=== PATIENT | male | born 1990 | race African-American/Black ===

== ENCOUNTER 2022-05-29 19:59 | Emergency (ER) | payer SELFPAY ==
--- NOTE | ~2022-05-29 | XR_ITS ---
EXAMINATION: XR FOREARM, LEFT CLINICAL INFORMATION: Lung trauma/fall COMPARISON: None TECHNIQUE: AP and lateral views of the left forearm were obtained. FINDINGS: There is a transverse fracture through the mid to distal left ulnar diaphysis. There is mild medial angulation of the distal fracture fragment with no significant dorsal or ventral angulation. No other fractures are seen. XR/XR forearm LT 2V IMPRESSION: Mid to distal left ulnar diaphyseal fracture.
[2022-05-29 20:48] VITALS: BP 125/76; PULSE 93; RESP 18; TEMP 36.6; O2SAT 97; BMI 36.0
--- NOTE | 2022-05-29 20:48 | ED.GENADULT ---
HPI - General Adult General Chief complaint: Extremity Injury, Upper Stated complaint: broke arm Time Seen by Provider: 05/29/22 21:37 Related Data Previous Rx's Medication Instructions Recorded oxycodone 5 mg tablet 5 mg PO Q8H PRN pain #10 tabs 05/29/22 Allergies Allergy/AdvReac Type Severity Reaction Status Date / Time No Known Allergies Allergy Verified 05/29/22 20:51 PMFSH Social History Social History Advance Directives: No Physical Exam ED Vital Signs: BMI result Body Mass Index 36.0 Course Course Course Narrative: triage note NORBERTO: -Pt c/o left arm pain, fell in metal pipe around 6pm, fell on side, states forearm hurts the most able to move fingers -has not taken any meds for pain -given motrin in triage 600mg, xray forearm pending PE: seems in pain, swelling and deformity on left forearm, pain to palpation on L forerarm, no pain on wrist, elbow or shoulder Medications Administered Discontinued Medications Generic Name Dose Route Start Last Admin Trade Name Freq PRN Reason Stop Dose Admin Ibuprofen 600 mg 05/29/22 20:51 05/29/22 20:56 Ibuprofen 600 Mg Tablet PO 05/29/22 20:52 600 mg ONCE ONE Administration Oxycodone HCl 10 mg 05/29/22 21:49 05/29/22 21:54 Oxycodone Hcl Immed Release 5 Mg Tablet PO 05/29/22 21:50 10 mg ONCE ONE Administration Discharge Plan Discharge Clinical Impression: Left ulnar fracture Patient Disposition: Home, Self-Care Instructions: Arm Fracture in Adults (ED), Splint Care (ED) Additional Instructions: Follow-up with orthopedic Elevate the arm Do not get the splint wet Use a sling for comfort Prescriptions: New oxycodone 5 mg tablet 5 mg PO Q8H PRN (Reason: pain) Qty: 10 0RF Rx Instructions: Partial Fill upon patient request. Referrals: [facility] [place] [facility] [Provider Group] - 5 days Interventions: ED Discharge Assessment Last Done: 05/29/22 22:24 Discharge Date/Time: 05/29/22 22:25
[2022-05-29] MEDS: Ibuprofen 600 MG TABLET PO (20:56)
[2022-05-29] MEDS: oxyCODONE HCl Immed Release 5 MG TABLET 10 MG PO (21:54)
--- OUTSIDE RECORDS SUMMARY | 2022-05-29 21:54 | XMS_ITS | Continuity of Care Document ---
:1990 Author Organization [facility] Address [address] [place] [address]- Care Team Providers Name Role Phone Not on Staff, PCP Primary Care Physician Unavailable [place] [facility] [place](s[place] 11/06/20 - 11/06/[address] [address]- Discharge Disposition: A-D/C Walkout Attending Physician: Not on Staff, Attending MD Admitting Physician: Not on Staff, Admitting MD Referring Physician: Not on Staff, Referring MD Allergies, Adverse Reactions, Alerts Substance Reaction Severity Status NKA Active Immunizations Given and Recorded Vaccine Date Status Refusal Reason tetanus/diphtheria/pertussis, acel(Tdap) 01/12/19 Given Not Given Vaccine Date Status Refusal Reason pneumococcal 23-valent vaccine1 08/11/13 Not Given Patient Refuses 1Result Note: already got this season Medications Keflex monohydrate 500 mg oral capsule 1 capsule = 500 mg, By Mouth, 4 times a day, for 5 days, # 20 capsule, 0 Refills, Acute 11/10/20 12:18:00 EDT, 11/05/20 12:18:00 EDT, Capsule, [id number], Partial fill upon patient request if the prescription is for a schedule II opioid drug.,... Start Date: 11/05/20 Stop Date: 11/10/20 Status: OrderedpredniSONE 20 mg oral tablet 2 tablet = 40 mg, By Mouth, Daily, for 5 days, # 10 tablet, 0 Refills, Acute 11/11/20 22:02:00 EDT, 11/06/20 22:02:00 EDT, Tablet, [id number], Partial fill upon patient request if the prescription is for a schedule II opioid drug., 170, cm, 04... Start Date: 11/06/20 Stop Date: 11/11/20 Status: OrderedValtrex 1 gm oral tablet 1 tablet = 1 Gm, By Mouth, 3 times a day, for 7 days, # 21 tablet, 0 Refills, Acute 11/13/20 22:02:00 EDT, 11/06/20 22:02:00 EDT, Tablet, [facility]/pharmacy #[id number], Partial fill upon patient request if the prescription is for a schedule II opioid drug., 170,... Start Date: 11/06/20 Stop Date: 11/13/20 Status: Ordered Vital Signs Most recent to oldest [Reference Range]: 1 Oxygen Saturation [94-100 %] 99 % (11/06/20 6:57 PM) Pulse Rate [55-90 bpm] 122 bpm *H* (11/06/20 6:57 PM) Mode of Delivery (Oxygen) Room air (11/06/20 6:57 PM) Social History Social History Type Response Smoking Status 10 or more cigarettes (1/2 p ack or more)/day in last 30 days entered on: 01/12/19 Sex
--- OUTSIDE RECORDS SUMMARY | 2022-05-29 21:54 | XMS_ITS | Continuity of Care Document ---
:1990 Author Organization [facility] Address [address] [place] [address]- Care Team Providers Name Role Phone Not on Staff, PCP Primary Care Physician Unavailable [id number] Date(s): 11/06/20 - 11/06/[address] [address]- Discharge Disposition: A-D/C Home Attending Physician: Sam Diaz MD Admitting Physician: Sam Diaz MD Referring Physician: Not on Staff, Referring MD Allergies, Adverse Reactions, Alerts Substance Reaction Severity Status NKA Active Immunizations Given and Recorded Vaccine Date Status Refusal Reason tetanus/diphtheria/pertussis, acel(Tdap) 01/12/19 Given Not Given Vaccine Date Status Refusal Reason pneumococcal 23-valent vaccine1 08/11/13 Not Given Patient Refuses 1Result Note: already got this season Medications acetaminophen-HYDROcodone 325 mg-5 mg oral tablet 2 tablet, Tablet, By Mouth, Once, Routine, 11/06/20 23:00:00 EDT, Stop date 11/06/20 23:00:00 EDT Start Date: 11/06/20 Stop Date: 11/06/20 Status: CompletedKeflex monohydrate 500 mg oral capsule 1 capsule [...] 11/11/20 22:02:00 EDT, 11/06/20 22:02:00 EDT, Tablet, [facility]/pharmacy #[id number], Partial fill upon patient request if the prescription is for a schedule II opioid drug., 170, cm, 04... Start Date: 11/06/20 Stop Date: 11/11/20 Status: OrderedValtrex 1 gm oral tablet 1 tablet = 1 Gm, By Mouth, 3 times a day, for 7 days, # 21 tablet, 0 Refills, Acute 11/13/20 22:02:00 EDT, 11/06/20 22:02:00 EDT, Tablet, [facility]/pharmacy #[id number], Partial fill upon patient request if the prescription is for a schedule II opioid drug., 170,... Start Date: 11/06/20 Stop Date: 11/13/20 Status: Ordered Vital Signs Most recent to oldest 1 2 3 [Reference Range]: Height 170 cm 170 cm (11/06/20 10:20 PM) (11/06/20 8:29 PM) Weight 104.8 kg 104.8 kg (11/06/20 10:20 PM) (11/06/20 8:29 PM) Oxygen Saturation [94-100 %] 100 % 97 % (11/06/20 10:20 PM) (11/06/20 8:29 PM) Pulse Rate [55-90 bpm] 78 bpm 91 bpm (11/06/20 10:20 PM) *H* (11/06/20 8:29 PM) Body Mass Index [18.5-24.99] 36.26 *>HHI* (11/06/20 10:20 PM) Blood Pressure [90-138/55-84 160/96 mm Hg 142/85 mm Hg mm Hg] *H* *H* (11/06/20 10:20 PM) (11/06/20 8:29 PM) Respiratory Rate [16-30 18 br/min 18 br/min 20 br/mi n br/min] (11/06/20 10:20 PM) (11/06/20 10:20 PM) (11/06/20 8 :29 PM) Temperature [96.8-100.4 DegF] 98.8 DegF (11/06/20 8:29 PM) Mode of Delivery (Oxygen) Room air Room air (11/06/20 10:20 PM) (11/06/20 8:29 PM) Blood pressure sites Arm, left Arm, left (11/06/20 10:20 PM) (11/06/20 8:29 PM) Temperature Route Oral (11/06/20 8:29 PM) Dry Weight 104.8 kg 104.8 kg (11/06/20 10:20 PM) (11/06/20 8:29 PM) Weight Obtained Via Standing scale (11/06/20 8:29 PM) Dry Weight Obtained Via Standing scale (11/06/20 8:29 PM) Social History Social History Type Response Smoking Status 10 or more cigarettes (1/2 p ack or more)/day in last 30 days entered on: 01/12/19 Sex
--- OUTSIDE RECORDS SUMMARY | 2022-05-29 21:54 | XMS_ITS | Continuity of Care Document ---
:1990 Author Organization [facility] Address [address] [place] [address]- Care Team Providers Name Role Phone Not on Staff, PCP Primary Care Physician Unavailable Encounter [facility] Date(s): 09/13/19 - 09/14/[address] [address]- [facility] Discharge Disposition: A-D/C Home Attending Physician: Allison Rosales MD Admitting Physician: Allison Rosales MD Referring Physician: Not on Staff, Referring MD Allergies, Adverse Reactions, Alerts Substance Reaction Severity Status NKA Active Immunizations Given and Recorded Vaccine Date Status Refusal Reason tetanus/diphtheria/pertussis, acel(Tdap) 01/12/19 Given Not Given Vaccine Date Status Refusal Reason pneumococcal 23-valent vaccine1 08/11/13 Not Given Patient Refuses 1Result Note: already got this season Medications doxycycline monohydrate 100 mg oral capsule 1 capsule = 100 mg, By Mouth, Every 12 hours, for 10 days, # 20 capsule, 0 Refills, Acute 09/24/19 4:33:00 EST, 09/14/19 4:33:00 EST, Capsule Start Date: 09/14/19 Stop Date: 09/24/19 Status: Orderedibuprofen 600 mg oral tablet 1 tablet = 600 mg, By Mouth, Every 8 hours, # 90 tablet, 0 Refills, Maintenance, 08/24/13 10:26:52, Tablet, 1 tablet By Mouth Every 8 hours Start Date: 08/24/13 Status: OrderedOxycodone 5mg/Acetaminophen 325mg Tablet 1, tablet, By Mouth, Every 6 hours, Refills 0, Tot. Refills 0, Maintenance, 08/24/13 10:05:19 Start Date: 08/24/13 Status: OrderedSenna By Mouth, 0 Refills, Maintenance, 08/24/13 10:04:31 Start Date: 08/24/13 Status: OrderedZofran 4 mg oral tablet 1 tablet = 4 mg, By Mouth, Every 8 hours, 0 Refills, Maintenance, 08/24/13 10:05:06 Start Date: 08/24/13 Status: Ordered Vital Signs Most recent to oldest [Reference Range]: 1 Height 170 cm (09/13/19 10:48 PM) Weight 93.5 kg (09/13/19 10:48 PM) Oxygen Saturation [94-100 %] 97 % (09/13/19 10:48 PM) Pulse Rate [55-90 bpm] 71 bpm (09/13/19 10:48 PM) Blood Pressure [90-138/55-84 mm Hg] 130/78 mm Hg (09/13/19 10:48 PM) Respiratory Rate [16-30 br/min] 18 br/min (09/13/19 10:48 PM) Temperature [96.8-100.4 DegF] 98.6 DegF (09/13/19 10:48 PM) Mode of Delivery (Oxygen) Room air (09/13/19 10:48 PM) Blood pressure sites Arm, left (09/13/19 10:48 PM) Temperature Route Oral (09/13/19 10:48 PM) Dry Weight 93.5 kg (09/13/19 10:48 PM) Weight Obtained Via Standing scale (09/13/19 10:48 PM) Dry Weight Obtained Via Standing scale (09/13/19 10:48 PM) Social History Social History Type Response Smoking Status 10 or more cigarettes (1/2 p ack or more)/day in last 30 days entered on: 01/12/19 Sex
--- OUTSIDE RECORDS SUMMARY | 2022-05-29 21:54 | XMS_ITS | Continuity of Care Document ---
:1990 Author Organization [facility] Address [address] [place] [address]- Care Team Providers Name Role Phone Not on Staff, PCP Primary Care Physician Unavailable [place] [facility] [place]/14/[address] [address]- [facility] Encounter Diagnosis Epididymitis (Final) - 09/14/19 Discharge Disposition: A-D/C Home Attending Physician: Florida Langston MD Admitting Physician: Florida Langston MD Referring Physician: Not on Staff, Referring [...] to oldest 1 2 3 [Reference Range]: Weight 94.1 kg 94.1 kg 94.1 kg (09/14/19 4:39 AM) (09/14/19 3:49 AM) (09/14/19 1:3 2 AM) Oxygen Saturation [94-100 %] 100 % 99 % 100 % (09/14/19 4:39 AM) (09/14/19 3:49 AM) (09/14/19 1:3 2 AM) Pulse Rate [55-90 bpm] 60 bpm 54 bpm 71 bpm (09/14/19 4:39 AM) *L* (09/14/19 1:32 AM) (09/14/19 3:49 AM) Blood Pressure [90-138/55-84 mm 139/89 mm Hg 127/67 mm Hg 144/69 mm Hg Hg] *H* (09/14/19 3:49 AM) *H* (09/14/19 4:39 AM) (09/14/19 1:32 AM) Respiratory Rate [16-30 br/min] 20 br/min 20 br/min 16 br/min (09/14/19 4:39 AM) (09/14/19 3:49 AM) (09/14/19 1:3 2 AM) Temperature [96.8-100.4 DegF] 98.7 DegF 97.9 DegF 98 .1 DegF (09/14/19 4:39 AM) (09/14/19 3:49 AM) (09/14/19 1:3 2 AM) Mode of Delivery (Oxygen) Room air Room air Room a ir (09/14/19 4:39 AM) (09/14/19 3:49 AM) (09/14/19 1:3 2 AM) Blood pressure sites Arm, right Arm, right Arm, right (09/14/19 4:39 AM) (09/14/19 3:49 AM) (09/14/19 1:3 2 AM) Temperature Route Oral Oral Oral (09/14/19 4:39 AM) (09/14/19 3:49 AM) (09/14/19 1:3 2 AM) Dry Weight 94.1 kg 94.1 kg 94.1 kg (09/14/19 4:39 AM) (09/14/19 3:49 AM) (09/14/19 1:3 2 AM) Social History Social History Type Response Smoking Status 10 or more cigarettes (1/2 p ack or more)/day in last 30 days entered on: 01/12/19 Sex
--- OUTSIDE RECORDS SUMMARY | 2022-05-29 21:54 | XMS_ITS | Continuity of Care Document ---
:1990 Author Organization [facility] Address [address] [place] [address]- Care Team Providers Name Role Phone Not on Staff, PCP Primary Care Physician Unavailable [id number] Date(s): 03/13/22 - 03/13/[address] [address]- Discharge Disposition: A-D/C Home Attending Physician: Saul Jimenze MD Admitting Physician: Saul Jimenez MD Referring Physician: Not on Staff, Referring MD Allergies, Adverse Reactions, Alerts No Known Allergies Immunizations Given and Recorded Vaccine Date Status Refusal Reason tetanus/diphtheria/pertussis, acel(Tdap) 01/12/19 Given Not Given Vaccine Date Status Refusal Reason pneumococcal 23-valent vaccine1 08/11/13 Not Given Patient Refuses 1Result Note: already got this season Medications amoxicillin 500 mg oral capsule 1 capsule = 500 mg, By Mouth, 3 times a day, for 7 days, # 21 capsule, 0 Refills, Acute 03/20/22 8:37:00 EDT, 03/13/22 8:37:00 EDT, Capsule, [id number], Partial fill upon patient request if theprescription is for a schedule II opioid drug., 1... Start Date: 03/13/22 Stop Date: 03/20/22 Status: OrderedHYDROcodone 5 mg/Acetaminophen 325 mg Tablet 1 tablet, Tablet, By Mouth, Once, STAT, 03/13/22 8:32:00 EDT, Stop date 03/13/22 8:32:00 EDT Start Date: 03/13/22 Stop Date: 03/13/22 Status: Completedibuprofen 600 mg oral tablet 600 mg, 1, tablet, By Mouth, Every 6 hours, # 40 tablet, Refills 0, Tot. Refills 0, Acute 03/14/22 8:40:00 EDT, 03/13/22 8:40:00 EDT, Route to Pharmacy Electronically, [facility]/pharmacy #[id number], Partial fill upon patient request if the prescription is for a... Start Date: 03/13/22 Stop Date: 03/14/22 Status: OrderedoxyCODONE 5 mg oral capsule 1 capsule = 5 mg, By Mouth, Every 6 hours, PRN as needed for pain, # 10 capsule, 0 Refills, Acute 03/14/22 8:40:00 EDT, 03/13/22 8:40:00 EDT, Capsule, [facility]/pharmacy #[id number], Partial fill upon patient request if the prescription is for a schedule II opioi... Start Date: 03/13/22 Stop Date: 03/14/22 Status: Ordered Problem List Condition Effective Dates Status Health Status Informant Obese class II(Confirmed) Active Vital Signs Most recent to oldest [Reference Range]: 1 2 Height 170 cm 170 cm (03/13/22 7:29 AM) (03/13/22 7:25 AM) Weight 103.6 kg 103.6 kg (03/13/22 7:29 AM) (03/13/22 7:25 AM) Oxygen Saturation [94-100 %] 98 % 98 % (03/13/22 8:00 AM) (03/13/22 7:25 AM) Pulse Rate [55-90 bpm] 78 bpm 80 bpm (03/13/22 8:00 AM) (03/13/22 7:25 AM) Body Mass Index [18.5-24.99] 35.85 *>HHI* (03/13/22 7:25 AM) Blood Pressure [90-138/55-84 mm Hg] 128/64 mm Hg 136/ 84 mm Hg (03/13/22 8:00 AM) (03/13/22 7:25 AM) Respiratory Rate [16-30 br/min] 16 br/min 16 br/mi n (03/13/22 8:45 AM) (03/13/22 7:25 AM) Temperature [96.8-100.4 DegF] 97.9 DegF (03/13/22 7:25 AM) Mode of Delivery (Oxygen) Room air Room air (03/13/22 8:00 AM) (03/13/22 7:25 AM) Blood pressure sites Arm, left (03/13/22 7:25 AM) Temperature Route Oral (03/13/22 7:25 AM) Dry Weight 103.6 kg 103.6 kg (03/13/22 7:29 AM) (03/13/22 7:25 AM) Weight Obtained Via Standing scale (03/13/22 7:25 AM) Dry Weight Obtained Via Standing scale (03/13/22 7:25 AM) Social History Social History Type Response Smoking Status 10 or more cigarettes (1/2 p ack or more)/day in last 30 days entered on: 01/12/19 Sex
--- OUTSIDE RECORDS SUMMARY | 2022-05-29 21:54 | XMS_ITS | Continuity of Care Document ---
:1990 Author Organization [facility] Address [address] [place] [address]- Care Team Providers Name Role Phone Not on Staff, PCP Primary Care Physician Unavailable [id number] Date(s): 11/05/20 - 11/05/[address] [address]- Discharge Disposition: A-D/C Home Attending Physician: Eddie DICKENS, Olya Trotter Admitting Physician: Olya Morgan MD Referring Physician: Not on Staff, Referring [...] Start Date: 11/05/20 Stop Date: 11/10/20 Status: Ordered Results Orders for Microbiology Reports Name Date Group A Strep Screen and Culture 11/05/20 Microbiology Reports TEST:Group A Strep Screen and Culture STATUS:Unauthenticated BODY SITE: SOURCE:THROAT COLLECTED DATE/TIME:11/05/20 10:30 AMGroup A Strep Screen and Culture SPECIMEN DESCRIPTION : THROAT SWAB SPECIAL REQUESTS : NONE DIRECT EXAM : RAPID GROUP A RESULT IS NEGATIVE, REFER TO CULTURE RESULT. REPORT STATUS : PRELIMINARY REPORT Radiology Reports Exam Date Time Procedure Performing Provider Status 11/05/20 10:08 AM Chest Single Frontal View Ifrah Saldivar; Auth (Verified) Notes:(Chest Single Frontal View) Reason For Exam: Shortness of BreathRESULT: Chest Single Frontal View Chest Single Frontal View INDICATION/CLINICAL QUESTION: Pain with swallowing. Air pain. TECHNIQUE: AP chest 0856 hours 11/05/2020. COMPARISON: 06/19/2019. FINDINGS: LINES AND TUBES: Absent. LUNGS AND PLEURA: RIGHT CHEST: Lung is clear and there is no effusion. LEFT CHEST: The lung is clear and there is no effusion. HEART AND MEDIASTINAL CONTOURS: Normal. BONES AND SOFT TISSUES: No acute abnormality.. IMPRESSION: 1. No active disease in chest. WSN: [id number] Ordering Physician: Olya Morgan Dictated By: Cristiano Wade MD Dictated Date/Time: 11/05/20 11:33 a Reviewed By: Cristiano Wade MD Signed By: Cristiano Wade MD Signed Date/Time: 11/05/20 11:33 am Transcribed By: PALMER Transcribed Date/Time: 11/05/20 11:32 am Vital Signs Most recent to oldest 1 2 3 [Reference Range]: Height 170 cm 170 cm (11/05/20 12:45 PM) (11/05/20 9:16 AM) Weight 106.3 kg 106.3 kg (11/05/20 12:45 PM) (11/05/20 9:16 AM) Oxygen Saturation [94-100 %] 100 % 100 % 100 % (11/05/20 12:45 PM) (11/05/20 11:31 AM) (11/05/20 9 :16 AM) Pulse Rate [55-90 bpm] 72 bpm 57 bpm 82 bpm (11/05/20 12:45 PM) (11/05/20 11:31 AM) (11/05/20 9 :16 AM) Body Mass Index [18.5-24.99] 36.78 *>HHI* (11/05/20 12:45 PM) Blood Pressure [90-138/55-84 131/91 mm Hg 141/97 mm Hg 129 /83 mm Hg mm Hg] (11/05/20 12:45 PM) *H* (11/05/20 9:16 AM) (11/05/20 11:31 AM) Respiratory Rate [16-30 16 br/min 16 br/min 16 br/mi n br/min] (11/05/20 12:45 PM) (11/05/20 11:31 AM) (11/05/20 9 :16 AM) Temperature [96.8-100.4 DegF] 98.2 DegF 98.2 DegF (11/05/20 11:31 AM) (11/05/20 9:16 AM) Mode of Delivery (Oxygen) Room air Room air (11/05/20 12:45 PM) (11/05/20 9:16 AM) Temperature Route Temporal Oral (11/05/20 11:31 AM) (11/05/20 9:16 AM) Dry Weight 106.3 kg 106.3 kg (11/05/20 12:45 PM) (11/05/20 9:16 AM) Weight Obtained Via Standing scale (11/05/20 9:16 AM) Dry Weight Obtained Via Standing scale (11/05/20 9:16 AM) Social History Social History Type Response Smoking Status 10 or more cigarettes (1/2 p ack or more)/day in last 30 days entered on: 01/12/19 Sex
--- NOTE | 2022-05-29 22:11 | ED.EXTPRO ---
HPI - Extremity Problem General Chief complaint: Extremity Injury, Upper Stated complaint: broke arm Time Seen by Provider: 05/29/22 21:37 Source: patient Mode of arrival: ambulatory Limitations: no limitations History of Present Illness HPI Narrative: 32 yo male previously healthy right hand dominant here with left forearm pain after mechanical slip and fall. Did not hit head or have LOC. Related Data Previous Rx's Medication Instructions Recorded oxycodone 5 mg tablet 5 mg PO Q8H PRN pain #10 tabs 05/29/22 Allergies Allergy/AdvReac Type Severity Reaction Status Date / Time No Known Allergies Allergy Verified 05/29/22 20:51 Review of Systems Review of Systems: Yes all other systems are reviewed and are negative Constitutional: Constitutional: Reports no additional constitutional complaints, Denies body ache(s), Denies chills, Denies fever(s), Denies headache(s) and Denies weakness Eyes: Eyes: Reports no additional eye complaints and Denies change in vision ENT: Reports system reviewed and no additional complaints, except as documented, Denies dizziness, Denies headache(s), Denies nasal congestion, Denies nasal discharge and Denies neck pain Cardiovascular: Cardiovascular: Reports no additional cardiovascular complaints, Denies chest pain, Denies leg edema and Denies dyspnea Respiratory: Respiratory: Reports no additional respiratory complaints, Denies cough and Denies dyspnea Gastrointestinal: Gastrointestinal: Reports no additional gastrointestinal complaints, Denies abdominal pain, Denies diarrhea, Denies nausea and Denies vomiting Genitourinary: Genitourinary: Denies urinary incontinence Musculoskeletal: Musculoskeletal: Reports no additional musculoskeletal complaints, Denies back pain, Reports arthralgias, Reports joint swelling, Reports limited range of motion, Denies neck pain, Denies numbness and Denies tingling Integumentary/Breasts: Skin/Breast: Reports system reviewed and no additional complaints, except as docu and Denies rash Neurologic: Reports system reviewed and no additional complaints, except as documented, Denies Abnormal speech present, Denies dizziness, Denies headache(s), Denies numbness, Denies tingling and Denies weakness [facility] Past Medical History Attestation statement: The following information was validated with the patient. Source: old records reviewed and nursing notes reviewed Social History Social History Advance Directives: No Physical Exam Vital Signs: Vital Signs: Last Vital Signs Temp 97.9 F 05/29/22 20:48 Pulse 93 05/29/22 20:48 Resp 18 05/29/22 20:48 BP 125/76 05/29/22 20:48 Pulse Ox 97 05/29/22 20:48 O2 Del Method 05/29/22 20:48 BMI result Body Mass Index 36.0 Const: General: cooperative, healthy appearing, comfortable and no acute distress Orientation/consciousness: patient oriented x3 Limitations: no limitations HEENT: Head: Yes normal to inspection Ears: hearing grossly normal bilaterally General nose exam: Normal external nose present Face and sinus: Yes normal facial exam Mouth: Normal oral and palatal mucosa present Throat: Yes posterior oropharynx normal Eyes: General: appearance normal, both eyes and all related structures Pupils: Equal, round and reactive pupils present Neck: Neck: Yes normal visual inspection Chest: Chest palpation & inspection: normal inspection of the chest Resp: Effort & Inspection: normal respiratory effort Auscultation: clear to auscultation bilaterally Cardio: Rate: regular rate Rhythm: regular rhythm Peripheral pulses: Peripheral pulses 2+ throughout GI: Inspection: Yes normal to inspection Palpation (GI): Soft to palpation and nontender Auscultation: normal bowel sounds Back/Spine/Pelvis: Thoracic/Lumbar Spine: thoracic and lumbar spine normal to inspection Skin: General skin exam: no rashes or lesions noted Neuro: General: patient oriented x3, no focal motor deficits and normal sensation to monofilament Cranial nerves: Yes Equal, round and reactive pupils present Cognition (Neuro): normal cognition Speech: No Abnormal speech present Gait exam (Neuro): Normal gait present Motor exam (neuro): 5/5 motor strength present throughout Extrem: Other: +swelling to L FA with tenderness over lateral aspect. Pain with pronation/supination. No elbow pain/shoulder pain/wrist pain or hand pain. NV intact distally. 2+Dp?Pt pulses General: Yes normal to inspection Course Course Course Narrative: X-ray show FINDINGS: There is a transverse fracture through the mid to distal left ulnar diaphysis. There is mild medial angulation of the distal fracture fragment with no significant dorsal or ventral angulation. No other fractures are seen. XR/XR forearm LT 2V IMPRESSION: Mid to distal left ulnar diaphyseal fracture. ? Spoke to orthopedics Greg. Recommended sugar tong splint, sling, f/u outpatient with orthopedics. Reviewed splint care. Reviewed worrisome signs/symptoms with patient and when to return to the ER. Comfortable with discharg ehome. Medications Administered Discontinued Medications Generic Name Dose Route Start Last Admin Trade Name Pete PRN Reason Stop Dose Admin Ibuprofen 600 mg 05/29/22 20:51 05/29/22 20:56 Ibuprofen 600 Mg Tablet PO 05/29/22 20:52 600 mg ONCE ONE Administration Oxycodone HCl 10 mg 05/29/22 21:49 05/29/22 21:54 Oxycodone Hcl Immed Release 5 Mg Tablet PO 05/29/22 21:50 10 mg ONCE ONE Administration MDM - Extremity (Nontraumatic) MDM Narrative Medical decision making narrative: 32-year-old male [id number] here with left forearm pain after mechanical fal with swelling and tenderness over the lateral aspect. Will check x-rays Consider contusion, fracture Medical Records Attestation: I reviewed the patient's medical records. Lab Data Attestation: I reviewed the patient's lab results. Imaging Data forearm x-rray: Attestation: I personally reviewed and interpreted this imaging study as follows: Radiologist's impression: [address] [address] XRay Report Signed Patient: Ruel Stark Jr MR#: [id number] : 1990 Acct:[id number] Age/Sex: 32 / M ADM Date: 05/29/22 Loc: .ED Attending Dr: Ordering Physician: Audrey Ramos MD Date of Service: 05/29/22 Procedure(s): XR forearm LT 2V Accession Number(s): [id number] cc: Audrey Ramos MD~ EXAMINATION: XR FOREARM, LEFT CLINICAL INFORMATION: Lung trauma/fall? COMPARISON: None? TECHNIQUE: AP and lateral views of the left forearm were obtained. FINDINGS: There is a transverse fracture through the mid to distal left ulnar diaphysis. There is mild medial angulation of the distal fracture fragment with no significant dorsal or ventral angulation. No other fractures are seen. XR/XR forearm LT 2V IMPRESSION: Mid to distal left ulnar diaphyseal fracture. ? Procedures Orthopedic Splinting/Casting Injury #1: Side: left Upper Extremity Injury Location: forearm Upper Extremity Immobilizer: sugar tong splint Discharge Plan Discharge Clinical Impression: Left ulnar fracture Patient Disposition: Home, Self-Care Instructions: Arm Fracture in Adults (ED), Splint Care (ED) Additional Instructions: Follow-up with orthopedic Elevate the arm Do not get the splint wet Use a sling for comfort Prescriptions: New oxycodone 5 mg tablet 5 mg PO Q8H PRN (Reason: pain) Qty: 10 0RF Rx Instructions: Partial Fill upon patient request. Referrals: [facility] [place] Orthopedic Surgeons [Provider Group] - 5 days Interventions: ED Discharge Assessment Last Done: 05/29/22 22:24 Discharge Date/Time: 05/29/22 22:25
== END 2022-05-29 22:25 | disposition home or self-care (01) ==
PROVIDERS: Emergency Provider Emergency Medicine
DX: S52.202A Unspecified fracture of shaft of left ulna, initial encounter for closed fracture (principal); M79.602 Pain in left arm; X58.XXXA Exposure to other specified factors, initial encounter; Y93.9 Activity, unspecified; Y92.9 Unspecified place or not applicable; Y99.9 Unspecified external cause status
CPT/HCPCS: 29105; 73090; 99283; 99284

== ENCOUNTER → 2022-06-03 15:11 | Outpatient (BNVA) | payer SELFPAY | PROVIDERS: Visit Provider Physician Assistant | DX: S52.202A Unspecified fracture of shaft of left ulna, initial encounter for closed fracture (principal) | CPT/HCPCS: 99202 ==

== ENCOUNTER 2022-06-07 09:57 | Day surgery (SDC) | payer SELFPAY ==
--- NOTE | 2022-06-06 13:10 | HO.ANESPROP2 ---
Documented by User: Adriana Covarrubias NP 06/06/22 13:11 HPI - Anesthesia Eval Consult details Narrative: 32yo M for Left Ulna Fracture ORIF [facility] Active Problems Active Problems: All Active Problems (Updated 06/03/22 @ 15:50 by Aditya Orellana) Fracture of shaft of left ulna (Acute) Social History Social History Patient Tobacco Use Status: Current everyday Tobacco user Cigarette Packs Per Day: 1 Cigarettes Per Day: 20.0 Years Smoked: 18 Meds Allergies Allergy/AdvReac Type Severity Reaction Status Date / Time No Known Allergies Allergy Verified 06/03/22 15:31 Exam Exam Date and Time: June 06, 2022 1310 Assessment and Plan Assessment Anesthesia Assessment: Chart Reviewed Documented by User: Nikolay Schwartz MD 06/09/22 22:52 HPI - Anesthesia Eval Consult details Narrative: 32yo M for Left Ulna Fracture ORIF Had a trauma to the chest and was told that needed surgery 6-8 years ago , patient declined at that time , later had workup done and was negative . FS greater than 4 mets . no CP Uses Marijuana , has also used cocaine in the past . [facility] Past Medical History Functional capacity: independent ambulation Family History Family history of problems with anesthesia: No Surgical History History of Problems with Anesthesia: No Social History Social History Patient Tobacco Use Status: Current everyday Tobacco user Cigarette Packs Per Day: 1 Cigarettes Per Day: 20.0 Years Smoked: 18 Meds Allergies Allergy/AdvReac Type Severity Reaction Status Date / Time No Known Allergies Allergy Verified 06/03/22 15:31 Exam Airway Mallampati Class: III TM Dist: >3cm Neck ROM: Full Loose/Missing/Broken Teeth: Yes (Multiple chipped . ) Heart: S1,S2 Lungs: b/l breath sounds Assessment and Plan Assessment Anesthesia Assessment: Anesthesia Plan Discussed Final Anesthetic Review Family History of Problems with Anesthesia: No History of Problems with Anesthesia: No NPO: Yes ASA Class: III Final Preanesthetic Review: Meds/Allgs Chart Reviewed, Consent Obtained/Reviewed and Anes Risks/Benef Reviewed Patient Risk: High Procedure Risk: Intermediate Anesthetic Plan Anesthetic Plan: GA and Regional Block Disposition: Standard PACU
--- NOTE | ~2022-06-07 | FL_ITS ---
EXAMINATION: XR FLUOROSCOPY WITH IMAGES CLINICAL INFORMATION: Fracture left ulnar shaft. Reduction. COMPARISON: Radiographs left forearm 05/29/2022 TECHNIQUE: Fluoroscopy Supervised By: Dr. Winston Carney. Fluoroscopy Time: 0.1 minutes. Cumulative Dose: 0.306 mGy. DAP: 0.20124 Gycm2. Images: 3. FINDINGS: Ulnar fracture is reduced with compression plate and multiple screws. Fracture fragments are in anatomic alignment. Hardware intact. No destructive process. FL/FL guidance in OR IMPRESSION: -Status post open reduction and internal fixation left ulnar fracture. -Anatomic alignment. Hardware intact.
[2022-06-07 10:30] VITALS: BMI 36.0
[2022-06-07] MEDS: Lactated Ringers 1,000 ML 100 ML IVCONT (11:19)
[2022-06-07 13:50] VITALS: BP 147/73; PULSE 113; RESP 17; TEMP 36.6; O2SAT 98
[2022-06-07 13:55] VITALS: BP 155/86; PULSE 96; RESP 18; O2SAT 98
[2022-06-07 14:00] VITALS: BP 162/82; PULSE 85; RESP 18; O2SAT 97
[2022-06-07 14:05] VITALS: BP 152/83; PULSE 78; RESP 18; O2SAT 95
[2022-06-07 14:20] VITALS: BP 142/84; PULSE 81; RESP 20; TEMP 36.8; O2SAT 97
--- NOTE | 2022-06-07 15:24 | P.BOP_ITS ---
Brief Operative Note Date of Service: 06/07/22 Pre-op diagnosis: Left ulnar shaft fracture Post-op diagnosis: same Procedure: ORIF left ulna Implants: [place] 8 hiole compression plate, narrow. Surgeon: Winston Carney MD Anesthesia: GETA, regional and local Was an Personal Computer Network Engineer used for this Procedure?: Yes Personal Computer Network Engineer: Greg Hahn Estimated blood loss (mL): 50 Tourniquet time (min): 25 IV fluids (mL): 800 Pathology: none sent Condition: stable Disposition: PACU
--- NOTE | 2022-06-11 08:27 | W.PM.OPN ---
Operative Note Operative Note Date of Service: 06/07/22 Narrative: Brief Operative Note Date of Service: 06/07/22 Pre-op diagnosis: Left ulnar shaft fracture Post-op diagnosis: same Procedure: ORIF left ulna Implants: [place] 8 hole compression plate, narrow. Surgeon: Winston Carney MD Anesthesia: GETA, regional and local Was an Manufacturing Technology Professor used for this Procedure?: Yes Manufacturing Technology Professor: Greg Hahn Estimated blood loss (mL): 50 Tourniquet time (min): 25 IV fluids (mL): 800 Pathology: none sent Condition: stable Disposition: PACU Procedure in detail: The patient was brought to the operating room and placed supine on the hand table. The limb was prepped and draped in standard fashion and a time-out was called to identify proper site procedure proper surgeon. IV antibiotics per weight were administered. I began by exsanguinating the limb and insufflating the tourniquet to 250 mm Hg. I then made a standard incision over the ulnar border of the forearm, approximately 10 cm proximal to the DRUJ. Fascial incision was made between ECU and FCU and the transvers ulnar shaft fracture was identified. I cleaned up the fracture and reduced it with a lobster claw., An 8 hole compression plate was selected and applid over the flat surface of the dorsum ofd the ulna. Standard AO technique was used and 8 cortices distal and 6 cortices proximal were obtained. Biplanar fluoro was used to confirm fracture reduction and hardware position. I was satisfied with both and the DRUJ was stable. Copious irrigation and layered closure was performed with subQ vicryl and rolando. Sterile dressings were applied. Patient was placed into a well-padded volar splint. Patient was extubated brought to recovery room in stable condition there were no known complications.
== END 2022-06-07 14:35 | disposition home or self-care (01) ==
PROVIDERS: Visit Provider Orthopaedic Surgery
PROC: (CPT 25545; principal; 2022-06-07 12:00)
DX: S52.202A Unspecified fracture of shaft of left ulna, initial encounter for closed fracture (principal); W19.XXXA Unspecified fall, initial encounter; Y93.9 Activity, unspecified; Y92.9 Unspecified place or not applicable; Y99.8 Other external cause status; F17.210 Nicotine dependence, cigarettes, uncomplicated
CPT/HCPCS: 25545; C1713; J0131; J0690; J2250; J2795; J3010

== ENCOUNTER 2022-06-24 07:45 | Outpatient (REF) | payer SELFPAY ==
--- NOTE | ~2022-06-24 | XR_ITS ---
EXAMINATION: XR FOREARM, LEFT CLINICAL INFORMATION: Follow-up left forearm fracture COMPARISON: Left forearm 06/07/2022 TECHNIQUE: AP and lateral views of the left forearm were obtained. FINDINGS: There is metallic plate and screws stabilizing distal ulnar fracture. There are surgical rolando along the dorsal skin region. The soft tissues are normal. XR/XR forearm LT 2V IMPRESSION: Status post ORIF distal ulnar fracture with metallic plate and screws. No change from previous exam 06/07/2022.
== END 2022-06-24 07:46 | disposition home or self-care (01) ==
LOC: HO.HOSX 07:45
PROVIDERS: Visit Provider Physician Assistant
DX: S52.202D Unspecified fracture of shaft of left ulna, subsequent encounter for closed fracture with routine healing (principal); X58.XXXD Exposure to other specified factors, subsequent encounter
CPT/HCPCS: 29085; 73090

== ENCOUNTER 2022-07-24 16:51 | Outpatient (REF) | payer SELFPAY ==
--- NOTE | ~2022-07-24 | XR_ITS ---
EXAMINATION: XR FOREARM, LEFT CLINICAL INFORMATION: Fracture follow-up. COMPARISON: 10/23/2021. TECHNIQUE: AP and lateral views of the left forearm were obtained. FINDINGS: No hardware failure. No change in fracture fragment position. The fracture lines are still well visible. There is increasing callus formation. XR/XR forearm LT 2V IMPRESSION: Increasing callus formation around fracture mid ulna with plate fixation. No change in position. Fracture line still visible.
== END 2022-07-24 16:52 | disposition home or self-care (01) ==
LOC: HO.HOSX 16:51
PROVIDERS: Visit Provider Physician Assistant
DX: S52.202D Unspecified fracture of shaft of left ulna, subsequent encounter for closed fracture with routine healing (principal)
CPT/HCPCS: 29075; 73090

== ENCOUNTER 2022-08-28 12:07 | Outpatient (REF) | payer SELFPAY ==
--- NOTE | ~2022-08-28 | XR_ITS ---
EXAMINATION: XR FOREARM, LEFT CLINICAL INFORMATION: Fracture COMPARISON: Forearm radiographs 07/24/2022 TECHNIQUE: AP and lateral views of the left forearm were obtained. FINDINGS: ORIF of a mid to distal ulnar shaft fracture with increased bridging bony callus formation and persistent lucency of the fracture margins. No acute fracture or dislocation. Joint spaces are maintained. Soft tissues are unremarkable. No evidence of hardware fracture or complication. XR/XR forearm LT 2V IMPRESSION: ORIF of a mid to distal ulnar shaft fracture with increased bridging bony callus formation and persistent lucency of the fracture margins. No evidence of hardware fracture or complication.
== END 2022-08-28 12:08 | disposition home or self-care (01) ==
LOC: HO.HOSX 12:07
PROVIDERS: Visit Provider Physician Assistant
DX: S52.202D Unspecified fracture of shaft of left ulna, subsequent encounter for closed fracture with routine healing (principal); X58.XXXD Exposure to other specified factors, subsequent encounter
CPT/HCPCS: 73090

== ENCOUNTER 2022-10-09 07:48 | Outpatient (REF) | payer SELFPAY | END 2022-10-09 07:49 | disposition home or self-care (01) | LOC: HO.HOSX 07:48 | PROVIDERS: Visit Provider Physician Assistant | DX: Z13.89 Encounter for screening for other disorder (principal) ==